=== PATIENT | male | born 1975 | race Hispanic/Latino ===

== ENCOUNTER 2023-09-20 18:59 | Emergency (ER) | payer OTHER ==
[~2023-09-20 18:59] MED LIST: Iopamidol-370 76% 500 ML MDV (1 ML CHARGE) ONE
[2023-09-20] MEDS ORDERED: Boostrix 0.5 ML (Tdap) VIAL (>/=7 yrs of age) ONE (19:53)
[2023-09-20] MEDS ORDERED: Ondansetron PF 4 MG/2 ML Vial ONE (19:53)
[2023-09-20] MEDS ORDERED: Morphine 4 MG/ML VIAL ONE (19:53)
[2023-09-20 20:18] LABS: #Eosinphils 0.1 thou/uL (0.0-0.7); #Monocytes 1.3 thou/uL (0.11-0.59); #Neutrophils 15.6 thou/uL (1.40-6.50); %Basophils 0.2 % (0.0-1.0); %Eosinophils 0.3 % (0.0-10.0); %Lymphocytes 6.4 % (21.0-51.0); %Neutrophils 85.5 % (42.0-75.0); Hematocrit 43.7 % (42.0-52.0); Hemoglobin 15.4 g/dL (14.0-18.0); Mean Corpuscular HGB CONC 35.2 g/dL (32.0-36.0); Mean Corpuscular Hemoglobin 30.6 pg (27.0-31.0); Mean Corpuscular Volume 86.9 fl (78.0-98.0); Mean Platelet Volume 10.9 fL (7.4-10.4); Platelet Count 256 10x3/uL (130-400); RBC Distribution Width 12.4 % (11.5-14.5); Red Blood Cell (RBC) Count 5.03 mill/uL (4.70-6.10); White Blood Cell (WBC) Count 18.2 10x3/uL (4.8-10.8)
[2023-09-20 20:39] LABS: ALT (SGPT) 40 U/L (8-55); AST (SGOT) 36 U/L (5-34); Albumin 3.8 g/dL (3.5-5.0); Alkaline Phosphatase 58 U/L (40-110); Anion Gap 14 mmol/L (10-20); BUN (Urea Nitrogen) 12 mg/dL (8.9-20.6); Bilirubin, Total 0.5 mg/dL (0.2-1.2); Calc. Creatinine Clearance 0 mL/min (70-130); Calcium 8.6 mg/dL (7.8-10.44); Carbon Dioxide 24 mmol/L (22-29); Chloride 103 mmol/L (98-107); Estimated GFR 103; Globulin 2.9 g/dL (2.4-3.5); Glucose 156 mg/dL (70-105); Potassium 3.6 mmol/L (3.5-5.1); Protein, Total 6.7 g/dL (6.0-8.3); Sodium 137 mmol/L (136-145)
[2023-09-20 20:40] LABS: Acetaminophen Less than 10 mcg/mL (10.0-30.0); Alcohol Less than 10.0 mg/dL (Less than 10); Lipase 26 U/L (8-78); Salicylate Less than 8.0 mg/dL (15.0-30.0)
[2023-09-20 20:50] LABS: Troponin I Less than 0.010 ng/mL (< 0.028)
[2023-09-20] MEDS ORDERED: Bupivacaine 0.25% 10 ML VIAL ONE (22:00)
== END 2023-09-20 22:20 | disposition home or self-care (01) ==
LOC: ERS 18:59
DX: S22.31XA Fracture of one rib, right side, initial encounter for closed fracture (principal); S01.01XA Laceration without foreign body of scalp, initial encounter; E11.9 Type 2 diabetes mellitus without complications; I10 Essential (primary) hypertension; F17.210 Nicotine dependence, cigarettes, uncomplicated; Z79.84 Long term (current) use of oral hypoglycemic drugs; Z23 Encounter for immunization; V89.2XXA Person injured in unspecified motor-vehicle accident, traffic, initial encounter
CPT/HCPCS: 12002; 36415; 70450; 71260; 72125; 74177; 80053; 80307; 83690; 84484; 85025; 90471; 90715; 93005; 96361; 96374; 96375; J2270; J2405; Q9967; S0020